=== PATIENT | female | born 1965 | race American Indian/Alaskan Native ===

== ENCOUNTER 2016-10-21 09:30 | Emergency (ER) | payer OTHER ==
--- NOTE | 2016-10-21 10:07 | Emergency Department Report ---
Chief Complaint: Chest Pain Stated Complaint: CHEST PAIN/SOB Time Seen by Provider: 10/21/16 10:02 - HPI History of Present Illness: 49 y/o female complain of intermittent chest pain x 1 months.pt state awaken this am with pain worsen.pt state she has not taking anything for pain .pt pain is nonradiating .pt state pain mostly running across the chest area.pt denies any prior medical treatment .denies any prior injury.pt complain of shortness of breathe when attempting to walk of stairs - ROS Review of Systems: per HPI - Exam Vital Signs: Vital Signs 10/21/16 09:46 Temperature 97.7 F Pulse Rate 53 L Respiratory 18 Rate Blood Pressure 136/70 O2 Sat by Pulse 100 Oximetry Physical Exam: GENERAL: The patient is well-developed and well-nourished. Patient is in NAD. HENT: Normocephalic. Atraumatic. Patient has moist mucous membranes. Throat: No erythema, swelling or exudates. EYES: Extraocular motions are intact, PERRL NECK: Supple. No meningitic signs are noted. There is no adenopathy noted. CHEST/LUNGS: wheezing noted bilateral . There is no respiratory distress noted. HEART/CARDIOVASCULAR: Regular rate and rhythm. Normal S1 S2. No murmurs, rubs , clicks, or gallops. ABDOMEN: Abdomen is soft, nontender.. Bowel sounds normoactive. There is no abdominal distention. Negative rebound tenderness. Negative Rovsing. Negative [place] testing. Negative obturator and psoas signs. Negative CVA tenderness B/ L. : Deferred. SKIN: There is no rash. There is no edema. There is no diaphoresis. NEURO: The patient is A&Ox3. The patient has no focal neurologic deficits. MUSCULOSKELETAL: There is no tenderness or deformity. There is no limitation range of motion. PSYCH: Pt has appropriate mood and affect. MSE screening note: Focused history and physical exam performed. Due to findings the following was ordered: ED Disposition for MSE Condition: Stable
[2016-10-21 10:39] LABS: Basophils % (Auto) 0.3 % (0.0-1.8); Eosinophils % (Auto) 0.4 % (0.0-4.3); Hematocrit 42.1 % (30.3-42.9); Hemoglobin 14.6 gm/dl (10.1-14.3); Mean Corpuscular HGB Conc 35 % (30-34); Mean Corpuscular Hemoglobin 31 pg (28-32); Mean Corpuscular Volume 88 fl (79-97); Platelet Count 242 K/mm3 (140-440); Red Blood Count 4.78 M/mm3 (3.65-5.03); Red Cell Distribution Width 12.7 % (13.2-15.2); White Blood Count 4.8 K/mm3 (4.5-11.0)
[2016-10-21 10:51] LABS: INR 0.98 (0.87-1.13)
[2016-10-21 10:52] LABS: Partial Thromboplastin Time 25.8 Sec. (24.2-36.6)
[2016-10-21 11:04] LABS: Creatine Kinase MB 1.2 ng/mL (0.0-4.0)
[2016-10-21 11:05] LABS: Anion Gap 17 mmol/L; BUN/Creatinine Ratio 16.66; Blood Urea Nitrogen 10 mg/dL (7-17); Calcium 9.3 mg/dL (8.4-10.2); Carbon Dioxide 23 mmol/L (22-30); Chloride 101.9 mmol/L (98-107); Creatine Kinase 78 units/L (30-135); Glucose 89 mg/dL (65-100); Potassium 4.1 mmol/L (3.6-5.0); Sodium 138 mmol/L (137-145)
--- NOTE | 2016-10-21 11:29 | XRay Report ---
ROUTINE CHEST, TWO VIEWS: HISTORY: Shortness of breath. The trachea, heart, mediastinal contour, lung alonso and bony thorax are unremarkable. IMPRESSION: Unremarkable chest x-ray.
[2016-10-21 15:50] VITALS: BP 125/70
--- NOTE | 2016-10-22 14:23 | ED Elopement Review ---
ED Pt Elopement review - Results review Lab results: Laboratory Tests 10/21/16 10/21/16 10/21/16 10:29 10:29 10:29 WBC 4.8 RBC 4.78 Hgb 14.6 H Hct 42.1 MCV 88 MCH 31 MCHC 35 H RDW 12.7 L Plt Count 242 Lymph % (Auto) 49.0 H [place] % (Auto) 8.1 H Eos % (Auto) 0.4 Baso % (Auto) 0.3 Lymph # 2.4 [place] # 0.4 Eos # 0.0 Baso # 0.0 Seg Neutrophils % 42.2 Seg Neutrophils # 2.0 PT 12.9 INR 0.98 APTT 25.8 Sodium 138 Potassium 4.1 Chloride 101.9 Carbon Dioxide 23 Anion Gap 17 BUN 10 Creatinine 0.6 L Estimated GFR > 60 BUN/Creatinine Ratio 16.66 Glucose 89 Calcium 9.3 Total Creatine Kinase 78 CK-MB (CK-2) 1.2 CK-MB (CK-2) Rel Index 1.5 Troponin T < 0.010 - Call Back decision Pt Call Back Decision: Pt to F/U with PMD
== END 2016-10-21 21:35 | disposition left against medical advice (07) ==
LOC: ED 09:30
DX: R07.89 Other chest pain (principal); R06.02 Shortness of breath; Z53.21 Procedure and treatment not carried out due to patient leaving prior to being seen by health care provider
CPT/HCPCS: 36415; 71020; 80048; 82550; 82553; 84484; 85025; 85610; 85730; 93005; 93010